=== PATIENT | female | born 1935 | race Caucasian/White ===

== ENCOUNTER 2024-05-28 12:25 | Inpatient (IN) | payer MEDICARE, OTHER, SELFPAY ==
[2024-05-27] VITALS (18 sets, daily range): BP systolic 121–170; BP diastolic 68–90; BMI 24.8
[2024-05-27] MEDS: NSS 191 ML IV (14:21)
[2024-05-27] MEDS: LOW STRENGTH ASPIRIN 324 MG PO (14:24)
[2024-05-27 16:03] LABS: ACT-LR - POC 240 Seconds (116-155)
--- NOTE | 2024-05-27 16:27 | ITS.CL.CATH ---
Addendum entered and electronically signed by Thai Renteria MD 05/27/24 16:47:
Contrast total: 136ccs
Original Note:
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
Cardiac Catheterization
Procedure Report:
CARDIAC CATHETERIZATION REPORT
Date of Procedure: 05/27/2024
Referring: [self]
Indication: [Aortic stenosis ]
PROCEDURE:
1. Right heart catheterization.
2. Left heart catheterization.
3. Coronary angiography.
[4. Aortic valve interrogation...]
ACCESS:
[6] Estonian [right radial] artery.
[6 Estonian [right antecubital] vein.
CATHETERS:
1. [6] Estonian [balloon wedge/[place]-Jose].
2. [5] Estonian [JL3.5].
3. [5] Estonian [JR4].
[ 4. ]5 Estonian AR 1 catheter to cross the valve.
HEMODYNAMIC DATA
AO (s/d/x mmHg): [ 153/82/113]
LV (s/x mmHg): [177/4/12 ]
PCWP (a/v/x mmHg): [11/9/8 ]
PA (s/d/x mmHg): [28/13/18 ]
RV (s/x mmHg): [39/0 ]
RA (a/v/x mmHg): [8 ]
PA SvO2 (%): [68 ]
PA SaO2 (%): [ 92]
Hbg (g/dL): [ ]
CO (L/min): [3.9L/min]
AV gradient (x, mmHg): [peak to peak 18.3mmhg, mean gradient 26.77mmHg ]
AV area (cm2): [ 0.87cm2]
LEFT VENTRICULOGRAPHY: Using a Migue catheter, the aortic valve was crossed into the left ventricle. Pressures were recorded and pullback was performed. Prior to pullback, left ventriculography was performed in the STEIN
projection. Ejection fraction 55% with normal wall motion. ]
CORONARY ANGIOGRAPHY
Using a JL 3.5 mm catheter, left main coronary was cannulated. Left system was imaged in multiple projections. Using a JR4 catheter, right coronary artery was cannulated. Right coronary artery was imaged in multiple projections.
Left main coronary artery is large with early bifurcation into LAD and left circumflex artery. Minor luminal irregularities present in left main coronary artery. LAD is a normal sized vessel, reaching the apex. Moderately tortuous. Minor
luminal irregularities throughout. 1 large diagonal is present. Minor luminal regularities present in the diagonal vessel.
Left circumflex is a normal sized vessel, with 2 obtuse marginal vessels. Minor luminal regularities are present.
Right coronary artery is a large vessel and that is ectatic. 20/3% proximal right coronary stenosis. 23% mid right coronary artery stenosis. Normal brisk resting flow present.
Closure Device: [TR band applied to the right radial artery site. Manual pressure was applied to the right brachial vein site.]
Radiation dose (mGy): [559.52]
DAP (cm2.Gy): [44.6940]
Fluoroscopy time (minutes): [12.7min ]
Sedation time (minutes): [45 mins ]
CONCLUSIONS:
1. [Inconclusive aortic valve interrogation with aortic valve area of 0.85 cm� but mean gradient of 26.77 mmHg and peak gradient of 18.3 mmHg. ]
2. [Nonsignificant coronary artery disease. ]
RECOMMENDATIONS:
1. Expectant management after cardiac catheterization via [right radial] approach.
2. Limited weight bearing [on right wrist] for one week.
3. [Further evaluation of the aortic valve is recommended via IRAIDA. ]
I was present with the patient for the duration of the moderate sedation and supervised staff who monitored the patient for the entire procedure. Details of sedation are entered by the nurse administering the sedation and details of the patient's
monitoring status are entered by a sign monitor role staff member into the [facility] laboratory electronic record system. Please see the nursing flow sheets for documentation of the name of the independent trained observer, and intra-service start and
end times.
I administered moderate sedation throughout this [45] minute procedure. An independent trained observer administered medications at my direction, and monitored, along with the monitor role staff member, the patient's level of consciousness and
physiological status throughout
[2024-05-27] MEDS: PULMICORT 0.5 MG INH (19:24)
[2024-05-27] MEDS: VENTOLIN NEBULES 2.5 MG INH ×2 (19:24→23:08)
--- NOTE | 2024-05-27 20:04 | HPS.HSE ---
Family Physician
-
Family Physician: Vandana Pennington
Chief Complaint
-
Chest pain/indigestion/burping post eating after cardiac cath
History of Present Illness
89-year-old female postcardiac cath for evaluation of aortic valve and episodes of chest pressure with indigestion and burping post eating. She was also complaining of some chest pain shortness of breath rales were heard of her bases and she was
given IV Lasix 40 mg in recovery along with Maalox single dose. While in postop after being given food she started complaining of indigestion like pain with burping lasting longer than it typically does she states. Her daughter Argelia states
that she has an appointment at the end of June for EGD evaluation to rule out any strictures. Once she is cleared GI she can then have IRAIDA for evaluation of her aortic valve. Her past medical history includes COPD, hypothyroidism, chronic
back pain on chronic oral opiates as needed, ulcerative colitis with history of chronic colostomy 2 years ago [facility], breast cancer with lumpectomy and chemo 20 years ago.
Medical History
Past Medical History
Past Medical History: Reports Other
Additional Past Medical History:
COPD
hypothyroidism
chronic back pain on chronic oral opiates as needed
ulcerative colitis with history of chronic colostomy 2 years ago [facility]
breast cancer with lumpectomy and chemo 20 years ago.
Past Surgical History: Reports Other
Additional Past Surgical History:
ulcerative colitis with history of chronic colostomy 2 years ago [facility]
Cardiac cath: 05/27/2024
1. Inconclusive aortic valve interrogation with aortic valve area 0.85 cm to but mean gradient 26.77 mmHg and peak gradient 18.3 mmHg
2. Nonsignificant CAD
Social History
Tobacco: Former Smoker
Alcohol: None
Drug: None
Personal: Single
Employment: Retired
Family History
Family History: Not pertinent
Allergies / Home Medications
Allergies reflects when Allergies were last updated in [facility].
Home Medications with original date entered in [facility]
Allergy/Medication List:
Allergies
Allergy/AdvReac Type Severity Reaction Status Date / Time
shellfish derived Allergy Diarhhea Verified 05/27/24 20:00
Sulfa (Sulfonamide Allergy Unknown Verified 05/27/24 20:00
Antibiotics)
Home Medications
arformoterol 15 mcg/2 mL solution for nebulization (Brovana) 2 ml inhalation BID 05/27/24
budesonide 0.5 mg/2 mL suspension for nebulization 0.5 mg inhalation BID 05/27/24
cholecalciferol (vitamin D3) 125 mcg (5,000 unit) tablet (Vitamin D3) 125 mcg PO DAILY 05/27/24
ipratropium 0.5 mg-albuterol 3 mg (2.5 mg base)/3 mL nebulization soln 3 ml inhalation QID 05/27/24
levothyroxine 37.5 mcg capsule 37.5 mcg PO DAILY 05/27/24
loperamide 2 mg tablet 2 mg PO BID 05/27/24
multivitamin 1 tab PO DAILY 05/27/24
oxycodone-acetaminophen 2.5 mg-325 mg tablet 1 tab PO Q8H PRN Back pain 05/27/24
Review of Systems
-
History Source: Patient and Family (Daughter Argelia at bedside)
A 12 point ROS was completed and negative except as noted: Yes
Constitutional: Reports Other (anxious); Denies Fatigue or Chills
EENT: Denies Sore Throat or Runny Nose
Respiratory: Denies Cough or Trouble Breathing
Cardiac: Reports Chest Pain (Describes as indigestion had burping earlier); Denies Diaphoresis, Palpitations or Syncope
Abdomen/GI: Reports Other (Chronic colostomy); Denies Abdominal Pain, Nausea, Vomiting, Diarrhea, Constipated or Bloody Stools
: Denies Dysuria, Frequency, Flank Pain, Incontinence or Difficulty Voiding
Musculoskeletal: Denies Joint Pain or Edema
Skin: Denies Itching or Rash
Neurological: Denies Dizzy or Headache
Endocrine: Reports No Symptoms
Hematologic/Lymphatic: Reports No Symptoms
Psych: Reports Anxiety
Physical Exam
Vital Signs
Vital Signs
Temp Pulse Resp BP Pulse Ox
98.3 F 81 27 137/74 92
05/27/24 14:15 05/27/24 19:20 05/27/24 19:20 05/27/24 18:20 05/27/24 19:20
Physical Exam
General: Conversant and Pain; No Fever or Chills
HEENT: NormoCephalic, Anicteric, Moist mucous membranes, PERRLA, [place] Conjunctivae and No Ptosis
Respiratory: Clear; No Wheezes, Rales or Rhonchi
Cardiac: S1/S2, Regular Rhythm and Murmur (Systolic 1/6 left upper sternal border); No Rub, Gallop or Peripheral Edema
Breast: Deferred by me
GI: Soft, Non Tender, Non Distended, Normal Bowel Sounds and No Hepatosplenomegaly
Rectal: Deferred by Provider
Genito-urinary: Deferred by me
Musculoskeletal: No Clubbing, No Cyanosis and No Edema
Skin: Warm and Dry; No Rash or Jaundice
Neuro: AO x 3, No Motor Deficits, Nonfocal/grossly intact, Cranial Nerves Intact and No Sensory Deficits; No Slurred Speech or Facial Droop
Psych: Anxious
Impression/Plan
-
Impression/plan:
OBS IVU
#Chest pain with shortness of breath postcardiac cath concern for CHF vs Esophageal Stricture
-Limited weightbearing 1 week right wrist
92% RA
-Patient took aspirin 324 mg earlier today
-Check BNP, CBC, BMP, coag,
check Troponin now and am
-Check chest x-ray
Tsh with free t4
-IV Lasix 40 mg now
-Patient has eventual plan for IRAIDA evaluation of her valve after cleared by GI for EGD and dysphagia
EKG: NSR 88 bpm, QTc 450 MS
Cardiac cath:
1. Inconclusive aortic valve interrogation with aortic valve area 0.85 cm to but mean gradient 26.77 mmHg and peak gradient 18.3 mmHg
2. Nonsignificant CAD
#Hx dysphagia unclear etiology concern for esophageal stricture/dysmotility/spasm
Given Maalox postop
-Consult GI
-Clears for now n.p.o. after midnight
-Has upcoming EGD scheduled end of June due to swallowing difficulty
-IV Protonix now and daily
-Speech swallow eval
#Hypothyroidism
Tsh with free t4
-Continue levothyroxine 37.5 mcg daily
#Chronic back pain
Patient takes oxycodone/acetaminophen 1 tab every 8 hours as needed
#COPD�no acute exacerbation
-Budesonide twice daily, Brovana twice daily, albuterol
#Ulcerative colitis with chronic colostomy x 2 years at [facility]
Loperamide 2 mg p.o. twice daily
#History of breast cancer with lumpectomy and chemo 20 years ago
DVT prophylaxis
Sq heparin
Full code
[2024-05-27] MEDS: LASIX 40 MG IV (20:08)
[2024-05-27] MEDS: MAALOX 30 ML PO (20:08)
[2024-05-27 20:11] LABS: Hematocrit 39.2 % (37.0-47.0); Hemoglobin 13.1 g/dL (12.0-16.0); Mean Corp Hgb Conc. 33.4 g/dL (33.0-37.0); Mean Corpuscular Hgb 29.6 pg (27.0-31.0); Mean Corpuscular Volume 88.5 fL (81.0-99.0); Mean Platelet Volume 8.8 fL (7.4-10.4); Platelet Count 274 10^3/uL (130-400); Red Blood Cell Count 4.43 10^6/uL (4.20-5.40); Red Cell Dist. Width 13.2 % (11.5-14.5); White Blood Cell Count 11.3 10^3/uL (4.8-10.8)
[2024-05-27 20:21] LABS: APTT 41.4 Sec (23.4-35.0); INR 1.12; PT 14.4 Sec (11.4-14.6)
--- NOTE | 2024-05-27 20:22 | PTCARENOTE ---
AT 1830 Patient became tachypneic and short of breath. Patient states this usually happens after meals but episode is lasting longer than normal. Dr. Renteria made aware. Orders given for breathing treatments. Coarse rales throughout. Respiratpry
at bedside. Patient started having 6/10 bilat rib pain and indigestion. Rapid response called. Patient admitted to IVU.
[2024-05-27 20:35] LABS: NT-proBNP 174 pg/ml; Troponin I 0.216 ng/ml
--- NOTE | 2024-05-27 20:36 | W.PN.UPDATE ---
Update Note
Progress Note Update
This note serves as an addendum to the H&P by physical education instructor GELA Antonina FIGUEROA
HPI
89F HX COPD, Hypothyroid underwent cardiac cath for RH, LH and aortic valve interrogation this evening and planned to DC however she developed indigestion at b/l costal margin while eating and SoB. Pox is low 90s with scatterd coarse rales at
bases.
Nonsignificant coronary artery disease and Inconclusive aortic valve interrogation with aortic valve area of 0.85 cm� but mean gradient of 26.77 mmHg and peak gradient of 18.3 mmHgper RH/LH cath.
ROS:
HX Indigestion , cough with food pending OP EGD
Per house PROFESSOR OF LANGUAGES , case d/w [facility] card/ Dr boudreaux suggest admit to hospitalist
PHX: as above
Reviewed VS:
Vital Signs
Temp Pulse Resp BP Pulse Ox
98.3 F 81 27 137/74 92
05/27/24 14:15 05/27/24 19:20 05/27/24 19:20 05/27/24 18:20 05/27/24 19:20
PE
Gen: Anxious
HEENT: wearing
Neck: supple
Lungs: basilar rhonchi or exp wheeze
Cor: RRR soft SM at LUSB
Abdomen: soft , benign, Colostomy bag filled with liquid dark brownish green fecal fluid
MANAGER INFRASTRUCTURE: AAO3, NFND
MS: no edema
Psych: appropriates
Data
Pending CBC, BMP and proBNP
Pending CXR
EKG:
NORMAL SINUS RHYTHM
NONSPECIFIC ST ABNORMALITY
ABNORMAL ECG
NO PREVIOUS ECGS AVAILABLE
05/27/24 cardiac cath report
PROCEDURE:
1. Right heart catheterization.
2. Left heart catheterization.
3. Coronary angiography.
4. Aortic valve interrogation.
1.Inconclusive aortic valve interrogation with aortic valve area of 0.85 cm� but mean gradient of 26.77 mmHg and peak gradient of 18.3 mmHg.
2. Nonsignificant coronary artery disease.
RECOMMENDATIONS:
1. Expectant management after cardiac catheterization via [right radial] approach.
2. Limited weight bearing [on right wrist] for one week.
3. Further evaluation of the aortic valve is recommended via IRAIDA.
Last hospitalist admission:
ASSESSMENT & PLAN
Indigestion like pain at b/l costal margin while eatimg meals s/p cardiac cath
DDX: acute on chronic dyspepsia , Coronary spasm
Nonsignificant coronary artery disease s/p cardiac cath
- Unremarkable EKG
- check TPN now and in AM in case
- DCA card consult
SoB
Marginal hypoxic RI POx 92 %
Minimal exp wheeze ? rales at base
HX COPD
- s/p IV Lasix 40 once
- check proBNP
- Pending CXR
- cont SUPERINTENDENT RENTING MANAGING Nebs
- Incentive spirometry
HX Indigestion and cough with food
OP suggestion for EGD to evaluate for stricture
- Speech to evaluate
- Clear diet in csse EGD on Friday
- GI consult
Inconclusive aortic valve interrogation
Aortic valve area of 0.85 cm� but mean gradient of 26.77 mmHg and peak gradient of 18.3 mmHg.
- To get EGD to eval stricture prior to IRAIDA
HX Colostomy 2 yrs ago at [facility]
s/p Colon segmental resection for colitis was told UC flare
- Lomotil PRN
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
Hypothyroid on LT4
DVT Px: SQH
Full code
IVU
[2024-05-27 20:55] LABS: TSH Reflex To Free T4 3.92 uIU/ml (0.47-4.68)
[2024-05-27] MEDS: VENTOLIN NEBULES INH (20:55)
[2024-05-27] MEDS: PROTONIX IV 40 MG IV (20:59)
[2024-05-27] MEDS: NSS (PRESERVATIVE FREE) 10 ML IV (20:59)
--- NOTE | 2024-05-27 21:45 | PTCARENOTE ---
Received pt from lab support tech. Hospitalists at bedside. Pt w/ R brachial c/d/i; no hematoma noted. R radial site w/ minimal old ooze outlined w/ marker. No new drg noted. Pt appears anxious. Reports 'pressure in bladder'... 'cant catch breath.' Upon
arrival to room w/ bladder scan pt able to void 400mL and reports relief w/ breathing and pressure. BMP and troponin drawn and sent. Troponin 0.216. Chase Ocampo ZUMBA INSTRUCTOR notified per protocol and no new orders placed. Currently has no CP. BP 134/75. Pt sating
at 95% 2L O2 NC. RR 22. Tele - SR. HR 90s. Oriented pt to unit. Daughter at bedside assisting in admission questions. Call gorge w/in reach.
[2024-05-27 21:50] LABS: Blood Urea Nitrogen 16 mg/dl (7-17); Calcium 9.8 mg/dl (8.4-10.2); Carbon Dioxide 28 mmol/L (22-30); Chloride 99 mmol/L (98-107); Estimated Creatinine Clearance 47 ml/min; Glucose 120 mg/dl (70-99); Potassium 3.6 mmol/L (3.5-5.1); Sodium 135 mmol/L (135-145); eGFR > 60.00
[2024-05-27] MEDS: ROXICODONE 2.5 MG PO (21:55)
[2024-05-27] MEDS: TYLENOL 325 MG PO (21:56)
[2024-05-27 22:00] LABS: Troponin I 0.211 ng/ml
[2024-05-27] MEDS: PERCOCET 5/325 1 TABLET PO (23:47)
--- NOTE | 2024-05-28 00:15 | PTCARENOTE ---
Pt c/o back pain 07/22. Oxycodone 2.5mg and Tylenol 325mg administered as ordered. Upon 1 hour reassessment, pt still w/ 07/22 back pain. Pt reports normally taking pain medication q5hr at home but only taking one dose at 5am this morning d/t
procedure. Pt unsure of at home pain med dosage. Chase Ocampo DRIER TAKE OFF TENDER notified and orders placed. Percocet ordered and administered per Margie DRIER TAKE OFF TENDER. Call gorge w/in reach.
[2024-05-28 05:10] VITALS: BP 113/69
[2024-05-28] MEDS: SYNTHROID 37.5 MCG PO (05:22)
--- NOTE | 2024-05-28 05:48 | PTCARENOTE ---
Pt reports sleeping well throughout night. Reports relief from back pain. Upon waking up pt w/ sob/wheeze. Respiratory at bedside for breathing treatment. Call pennington w/in reach.
[2024-05-28] MEDS: PULMICORT 0.5 MG INH ×2 (05:50→19:20)
[2024-05-28] MEDS: VENTOLIN NEBULES 2.5 MG INH ×2 (05:50→10:50)
[2024-05-28 06:19] LABS: Troponin I 0.136 ng/ml
[2024-05-28 07:01] VITALS: BP 114/65
[2024-05-28] MEDS: ROXICODONE 2.5 MG PO ×2 (08:56→20:43)
[2024-05-28] MEDS: TYLENOL 650 MG PO (08:57)
[2024-05-28] MEDS: HEPARIN 5000 UNITS SC ×2 (08:59→20:28)
[2024-05-28] MEDS: IMODIUM 2 MG PO ×2 (08:59→20:29)
[2024-05-28] MEDS: PROTONIX IV 40 MG IV (09:00)
[2024-05-28] MEDS: NSS (PRESERVATIVE FREE) 10 ML IV (09:00)
--- NOTE | 2024-05-28 09:05 | CON.CAR ---
Addendum entered and electronically signed by Lukas Gregory MD 05/28/24 12:01:
I saw and examined the patient.
The SIZER HAND's note was reviewed and I agree with the note.
Comment: 89-year-old female with prior breast cancer status post lobectomy, COPD, former smoker, hypothyroidism, and aortic stenosis who presented for cardiac catheterization yesterday. She developed significant shortness of breath after the
procedure. In talking with her her shortness of breath is consistent with prior COPD exacerbations. She tells me her weight is typically 140 pounds which is what we got today. Additionally, echocardiogram shows moderate to severe aortic stenosis
with normal LV function. Chest x-ray did not show any significant pulmonary edema. Finally, on exam she has poor air movement bilaterally. I believe her shortness of breath is likely due to lung disease, COPD exacerbation and would likely benefit
from increased interval of inhalers.
-No new medications or testing.
-COPD exacerbation per primary
We will sign off please call with questions or concerns.
Original Note:
Consultation
Consultation Request
Date/Time Consultation Requested: 05/27/2024 20:40
Date/Time Consultation Performed: 05/28/2024 09:00
Requesting Provider: ASH Ocampo
Performing Provider: ASH Henning for Dr. Gregory
Reason for Consultation: Chest pain & SOB S/P cardiac catheterization
Medical History
-
Chief Complaint: Chest pain postcardiac catheterization
History of Present Illness:
Juliana Harley is an 89-year-old female with prior breast cancer status post lobectomy, COPD, former smoker, hypothyroidism, and aortic stenosis who presented for cardiac catheterization yesterday. She had an inconclusive aortic valve interrogation
with an TAYLER of 0.85 cm� but a mean gradient of 26.77 mmHg and a peak gradient of 18.3 mmHg. This was via a right radial approach. Further evaluation of the aortic valve was recommended via IRAIDA. Postprocedure, she developed chest pressure with
indigestion after eating and shortness of breath. Notes reflect she had bibasilar rales and was given furosemide 40 mg in recovery along with a single dose of Maalox. She has an appointment with GI next month to rule out strictures. Once she is
cleared from a GI perspective she may undergo IRAIDA for evaluation of her aortic stenosis.
Past Medical History
Past Medical History: Cancer (Breast [lumpectomy]), COPD, Hypothyroidism, Valvular Disease (Aortic stenosis) and Other (Chronic back pain, ulcerative colitis)
Past Surgical History: Bowel Resection
Social History
Tobacco: Former Smoker
Alcohol: None
Drug: None
Employment: Retired
Family History
Family History: Reviewed & Not Pertinent
Allergies / Home Medications
Allergy/AdvReac Type Severity Reaction Status Date / Time
shellfish derived Allergy Diarhhea Verified 05/27/24 20:00
Sulfa (Sulfonamide Allergy Unknown Verified 05/27/24 20:00
Antibiotics)
�Medication �Instructions �Recorded �Confirmed �Type
arformoterol 15 mcg/2 mL solution 2 ml inhalation BID 05/27/24 05/27/24 History
for nebulization (Brovana)
budesonide 0.5 mg/2 mL suspension 0.5 mg inhalation BID 05/27/24 05/27/24 History
for nebulization
cholecalciferol (vitamin D3) 125 125 mcg PO DAILY 05/27/24 05/27/24 History
mcg (5,000 unit) tablet (Vitamin
D3)
ipratropium 0.5 mg-albuterol 3 mg 3 ml inhalation QID 05/27/24 05/27/24 History
(2.5 mg base)/3 mL nebulization
soln
levothyroxine 37.5 mcg capsule 37.5 mcg PO DAILY 05/27/24 05/27/24 History
loperamide 2 mg tablet 2 mg PO BID 05/27/24 05/27/24 History
multivitamin 1 tab PO DAILY 05/27/24 05/27/24 History
oxycodone-acetaminophen 2.5 mg-325 1 tab PO Q8H PRN Back pain 05/27/24 05/27/24 History
mg tablet
Review of Systems
-
History Source: Patient
All other systems: Negative unless noted
Constitutional: Fatigue
EENT: No Symptoms
Respiratory: Trouble Breathing
Cardiac: No Symptoms
Abdomen/GI: No Symptoms
: No Symptoms
Musculoskeletal: No Symptoms
Skin: No Symptoms
Neurological: Weakness
Endocrine: No Symptoms
Hematologic/Lymphatic: No Symptoms
Physical Exam
Vital Signs
Temp Pulse Resp BP Pulse Ox
97.4 F 84 22 113/69 95
05/28/24 06:59 05/28/24 05:50 05/28/24 06:59 05/28/24 05:10 05/28/24 06:59
Lab Results
05/27/24 20:01
05/27/24 21:24
Troponin I 0.136 ng/ml H* D 05/28/24 05:22
[id number]-[id number] Pept 174 pg/ml 05/27/24 20:01
Physical Exam
General: Well Developed, Well Nourished and Respiratory Distress
HEENT: Normocephalic, Anicteric and Moist Mucous Membranes
Respiratory: Crackles and Accessory Resp Muscle Use
Cardiac: S1/S2 and Regular Rhythm; Negative Peripheral Edema
Breast: Deferred by me
GI: Soft, Non Tender, Non Distended and Normal Bowel Sounds
Rectal: Deferred by Provider
Genito-urinary: No Costovertebral Tender
Musculoskeletal: No Clubbing, No Cyanosis and No Edema
Skin: Warm
Neuro: AO x 3
Hematologic/Lymphatic: No Lymphadenopathy
Psych: Calm (warm and dry)
Impression / Plan
-
Shortness of breath
-Rales on exam, she does have underlying lung disease
-Echo this morning
Chest pain post procedure, improved with Maalox
Non-MT troponin elevation, secondary to cardiac catheterization
-Peak troponin 0.216 and has trended down
-EKG stable, update
Cardiac catheterization
-Right radial site stable without hematoma
Aortic stenosis
-The plan is for outpatient IRAIDA when she is cleared by GI, she has an appointment next month
COPD
Hypothyroidism, on levothyroxine
Chronic back pain
Ulcerative colitis
Former smoker, continue cessation recommended
Data Reviewed
-
EKG: Report Reviewed by me (Sinus rhythm, nonspecific T wave abnormality, rate 88)
Radiology: Report Reviewed by me (CXR: No evidence of active cardiopulmonary disease.)
Labs: Labs Reviewed by me
Old Records: Reviewed
--- NOTE | 2024-05-28 10:39 | CM ---
Reviewed chart. Met with Mrs. Harley to review discharge plans. She states prior to admission she resides alone in a second floor apartment next door to her daughter. She states she has a stair glide to get to the apartment. She states once up
the steps she has a one level living. She states prior to admission she ambulates with a walker. She states she has a walker, single point cane and stair glide at home. She states she has a private caregiver three days a week for a couple of
hours. They assist with personal care. She states she pays privately for her lead caregiver. She states she has a prescription plan. Will need to see her current functional level to see if she will have any skilled care needs. Medical [id number] in
progress. The discharge plan is to return home with her private caregivers when medically stable.
[2024-05-28 11:37] VITALS: BP 117/75
[2024-05-28 12:15] VITALS: BMI 24.1
[2024-05-28] MEDS: DECADRON 4 MG IV ×2 (12:58→17:46)
--- NOTE | 2024-05-28 13:27 | CON.GI ---
Addendum entered and electronically signed by Iron Clifton MD 05/28/24 16:00:
I saw and examined the patient.
The SENIOR SUPPORT ENGINEER's note was reviewed and I agree with the note.
-- Dysphagia-intermittent for 1 year
-- Shortness of breath
-- History of UC s/p total colectomy with ileostomy at [place] 5 years back
plan
Diet as per speech therapy with aspiration precaution
Will start GI evaluation with barium esophagram
Will hold off on EGD considering her current respiratory status.
Further workup of her shortness of breath as per medical team
Original Note:
Consultation
-
Date/Time Consultation Requested: 05/27/24 2245
Date/Time Consultation Performed: 05/28/24 1300
Requesting Provider: ASH Araya
Performing Provider: Dr. Clifton/ASH Lim
Reason for Consultation: dysphagia
Medical History
Chief Complaint / HPI
Chief Complaint: CP/SOB/indigestion
History of Present Illness:
89-year-old female with past medical history breast cancer status postlumpectomy and chemotherapy, ulcerative colitis diagnosed 5 years ago treated for 1 year with medications now status post colectomy with ileostomy, COPD, hypothyroidism, aortic
stenosis who was here for cardiac catheterization yesterday who was admitted after significant shortness of breath after the procedure. We are asked to evaluate for dysphagia. Upon speaking with patient she states that she has been having
intermittent dysphagia for approximately 1 year. She states that she has been having issues with solid foods only. This is intermittent. She states that 'after I swallow I choke and I feel it gets stuck.' She states it takes several minutes to
pass. She did have a couple episodes where she regurgitated her food back up. She has had some issues of early satiety. She has not had any weight loss. Recently she has been 'choking on my spit'. And she is also been having 1 month history of
swallowing pills. She states her shortness of breath has been getting worse more recently. She is not on oxygen at home. Currently she is tachypneic, dyspneic and cannot speak in full sentences. She is on 2 L nasal cannula. The patient denies
any fevers, chills, nausea, vomiting, melena, hematochezia, odynophagia or unintentional weight loss. She does have an ileostomy with soft brown stool within it. There have been no issues with this.
Past Medical History
Past Medical History: Cancer (Breast cancer status postlumpectomy and chemotherapy (20 years ago)), COPD and Other (Aortic stenosis, ulcerative colitis status posttreatment with medications followed by subtotal colectomy with ileostomy 5 years ago,
hypothyroidism,)
Past Surgical History: Bowel Resection (Subtotal colectomy with ileostomy) and Other (Breast lumpectomy)
Social History
Tobacco: Former Smoker
Alcohol: None
Drug: None
Family History
Family History: Other (No family history of gastrointestinal malignancy or IBD)
Allergies / Home Medications
Allergy/AdvReac Type Severity Reaction Status Date / Time
shellfish derived Allergy Diarhhea Verified 05/27/24 20:00
Sulfa (Sulfonamide Allergy Unknown Verified 05/27/24 20:00
Antibiotics)
�Medication �Instructions �Recorded
arformoterol 15 mcg/2 mL solution 2 ml inhalation BID 05/27/24
for nebulization (Brovana)
budesonide 0.5 mg/2 mL suspension 0.5 mg inhalation BID 05/27/24
for nebulization
cholecalciferol (vitamin D3) 125 125 mcg PO DAILY 05/27/24
mcg (5,000 unit) tablet (Vitamin
D3)
ipratropium 0.5 mg-albuterol 3 mg 3 ml inhalation QID 05/27/24
(2.5 mg base)/3 mL nebulization
soln
levothyroxine 37.5 mcg capsule 37.5 mcg PO DAILY 05/27/24
loperamide 2 mg tablet 2 mg PO BID 05/27/24
multivitamin 1 tab PO DAILY 05/27/24
oxycodone-acetaminophen 2.5 mg-325 1 tab PO Q8H PRN Back pain 05/27/24
mg tablet
Review of Systems
-
All other systems: A 12 pt ROS was Negative except as stated above in HPI
Vital Signs
Temp Pulse Resp BP Pulse Ox
97.4 F 92 24 117/75 96
05/28/24 06:59 05/28/24 12:00 05/28/24 11:35 05/28/24 11:37 05/28/24 11:35
Physical Exam
Exam
General: Other (Patient with dyspnea, tachypnea appears frail)
HEENT: Anicteric
Respiratory: Clear (Poor air exchange) and Other (Supplemental nasal cannula 2 L, tachypnea, dyspnea, cannot speak in full sentences)
Cardiac: Regular Rhythm
GI: Soft, Non Tender, Non Distended, Normal Bowel Sounds and Other (Ileostomy right sided, brown stool in bag)
Musculoskeletal: No Edema
Skin: Warm and Dry
Neuro: AO x 3
Psych: Calm
Results
WBC 11.3 10^3/uL (4.8-10.8) H 05/27/24 20:01
Hgb 13.1 g/dL (12.0-16.0) 05/27/24 20:01
Hct 39.2 % (37.0-47.0) 05/27/24 20:01
MCV 88.5 fL (81.0-99.0) 05/27/24 20:01
Plt Count 274 10^3/uL (130-400) 05/27/24 20:01
PT 14.4 Sec (11.4-14.6) 05/27/24 20:01
INR 1.12 05/27/24 20:01
APTT 41.4 Sec (23.4-35.0) H 05/27/24 20:01
Sodium 135 mmol/L (135-145) 05/27/24 21:24
Potassium 3.6 mmol/L (3.5-5.1) 05/27/24 21:24
Chloride 99 mmol/L (98-107) 05/27/24 21:24
Carbon Dioxide 28 mmol/L (22-30) 05/27/24 21:24
BUN 16 mg/dl (7-17) 05/27/24 21:24
Creatinine 0.7 mg/dL (0.6-1.0) 05/27/24 21:24
Calcium 9.8 mg/dl (8.4-10.2) 05/27/24 21:24
Diagnostic Image Results:
Prior GI Procedures:
EGD: Never
Colonoscopy: Per patient approximately 5 years ago. Was performed by physician associated with [facility]. Colectomy performed at [facility]
Assessment / Plan
-
89-year-old female with past medical history breast cancer status postlumpectomy and chemotherapy, ulcerative colitis diagnosed 5 years ago treated for 1 year with medications now status post colectomy with ileostomy, COPD, hypothyroidism, aortic
stenosis who was here for cardiac catheterization yesterday who was admitted after significant shortness of breath after the procedure. We are asked to evaluate for dysphagia. Upon speaking with patient she states that she has been having
intermittent dysphagia for approximately 1 year. She states that she has been having issues with solid foods only. Currently patient is having acute on chronic respiratory issues with dyspnea, tachypnea and unable to speak in full sentences. She
is requiring supplemental oxygen. EGD would not be appropriate.
Impression:
Intermittent dysphagia, 1 year
Acute on chronic shortness of breath
History of ulcerative colitis status post colectomy end ileostomy
Other diagnoses:
COPD
Aortic stenosis
Hypothyroidism
Plan:
-Speech-language pathology evaluation
-Recommend barium esophagram
-EGD not appropriate at this time
-Further recommendations to be forthcoming
-
-
Thank you for consultation and allowing me to participate in the patient's care. Please call the precast concrete products installer GI physician during the after hours with any questions or concerns.
--- NOTE | 2024-05-28 14:31 | W.PN.HOSP.TC ---
Today's Communication/Plan
-
Treat COPD exacerbation including oxygen, systemic corticosteroids, bronchodilators
Attempt to wean off O2 as tolerates.
GI evaluation for odynophagia.
Monitor volume status closely
Assessment / Plan
Assessment / Plan
Impression:
Acute hypoxic respiratory failure secondary to COPD exacerbation.
COPD, acute exacerbation
Persistent odynophagia to solids for about a year
Aortic stenosis.
� Status post RHC 05/27 with inconclusive aortic valve interrogation.
Non-NM troponin elevation.
Other conditions:
Hypothyroidism on replacement.
Ulcerative colitis.
Breast carcinoma status post lumpectomy
Chronic back pain.
Former smoker
Plan:
Acute hypoxic respiratory failure secondary to COPD exacerbation
Currently required 2 L of nasal cannula oxygen while satting in low 90s with increased work of breathing
Exam with poor air movement, diminished breath sounds bilaterally without wheezing
Clinically not volume overloaded
Chest x-ray with hyperinflation no infiltrates
Continue O2 supplementation with attempt to wean to
Initiate corticosteroids: Decadron 4 mg every 6
Continue Pulmicort
Continue short acting bronchodilators.
Consider pulmonology evaluation if no reasonable improvement over the next 24 to 48 hours.
Aortic stenosis
Echocardiogram 05/28 LVEF 50 to 60%. Moderate to severe aortic stenosis with TAYLER 0.93 cm�.
Ongoing evaluation including RHC on 05/27 and plan IRAIDA as outpatient.
Volume status compensated
Status post Lasix 40 mg IV given on 05/27
Monitor closely hold further diuresis unless required.
Persistent odynophagia to solids.
Speech and swallow evaluation.
VSE today on 05/28 with unremarkable oropharyngeal phase and passage to esophagus
Diet has been adjusted as recommended.
Gastroenterology evaluation
Esophagogram once clear contrast from VSE
Continue PPI
Eventually will need GI clearance for planned IRAIDA
Ulcerative colitis
Status post segmental resection for ulcerative colitis flare, colostomy 2 years ago at [facility]
Continue Lamictal as needed
Anticipated Discharge: 24 - 48 hours
Subjective/Interval History
-
Date of Service: May 28, 2024
Objective Data
-
Vital Signs:
Vital Signs
Temp Pulse Resp BP Pulse Ox
97.4 F 92 24 117/75 96
05/28/24 06:59 05/28/24 12:00 05/28/24 11:35 05/28/24 11:37 05/28/24 11:35
I&O
05/27/24 05/28/24 05/29/24
06:59 06:59 06:59
Output Total 1600 / 1600 250 / 250
Balance -1600 / -1600 -250 / -250
Physical Exam
-
General: Well Developed and No Apparent Distress
HEENT: Normocephalic, Atraumatic and Moist Mucous Membranes
Respiratory: Accessory Resp Muscle Use and Other (Increased work of breathing with poor air movement bilaterally); Negative Wheezes
Cardiac: Regular Rhythm and S1/S2; Negative Murmur, Rub or Gallop
GI: Soft, Nontender, Nondistended and Normal Bowel Sounds; Negative Organomegaly
Rectal: Deferred by Provider
Musculoskeletal: No Clubbing, No Cyanosis and No Edema
Skin: Negative Rash
Neuro: Nonfocal/Grossly Intact
--- NOTE | 2024-05-28 14:44 | PTOTSP ---
Video Swallow Examination
Instances of disorganized oral processing and swallow delay that may have been related to taste of barium and the patient's overall presentation of discomfort and unease. This combination resulted in transient laryngeal penetration of thin liquid by
cup, 1/2 trials of honey thick liquid/tsp and regular solid. No persistent laryngeal penetration or aspiration observed during study. Trace to mild oral stasis cleared with secondary swallow. No pharyngeal stasis. Observation of esophageal emptying
in lateral upright position was unremarkable, though visualization not ideal and this test is not meant to assess structure or function of esophagus.
Recommend
1. Soft solids and Thin Liquids
2. Eat slowly and chew thoroughly
Given patient report of pharyngeal/sternal retention:
3. Intersperse sip of liquid in between bites of solids/semi-solids
4. Remain upright for at least 30 minutes after meals
--- NOTE | 2024-05-28 15:14 | PTCARENOTE ---
Pt sat OOB in chair today,martha well, ESTRADA, and dyspneic when talking, she remains on O2 at 2L/min. O2 sat 93%.
[2024-05-28 15:19] VITALS: BP 121/71
[2024-05-28] MEDS: DUONEB 3 ML INH ×2 (15:42→19:20)
[2024-05-28 16:45] LABS: Glucose - Point of Care 196 mg/dl (70-99)
[2024-05-28] MEDS: NOVOLOG FLEXPEN-LOW RESISTANCE 1 UNITS SC (17:45)
[2024-05-28 18:32] VITALS: BP 117/65
[2024-05-28] MEDS: MAALOX 30 ML PO (20:30)
[2024-05-28] MEDS: FLUSH (NSS) 1 FLUSH IV (20:30)
[2024-05-28] MEDS: TYLENOL 325 MG PO (20:42)
[2024-05-28 21:40] LABS: Glucose - Point of Care 147 mg/dl (70-99)
[2024-05-28 22:00] VITALS: BP 120/75
--- NOTE | 2024-05-28 22:51 | PTCARENOTE ---
Received patient at change of shift. Awake and oriented. Sitting on edge of bed. BP-117/65 SR 95, oxygen 93% on 2L. Right brachial clean, dry, and intact. Right radial no change from old seeping. Positive radial pulses. Very SOB on exertion and with
talking. Denies any pain. Emptied colostomy bag. Patient requested Maloxx for indigestion, given-- see MAR. Patient agreed to call care team with any shortness of breath. Call pennington within reach.
[2024-05-29] VITALS (8 sets, daily range): BP systolic 99–117; BP diastolic 50–69
[2024-05-29] MEDS: DECADRON 4 MG IV ×4 (00:41→21:06)
[2024-05-29] MEDS: FLUSH (NSS) 1 FLUSH IV (00:41)
[2024-05-29 04:44] LABS: % Basophils 0.2 % (0-2); % Immature Granulocytes 0.7 % (0-0.5); % Lymphocytes 15.5 % (20.5-51.1); % Monocytes 1.5 % (1.7-9.3); % Neutrophils 82.1 % (42.2-75.2); Absolute Monocytes 0.1 10^3/uL (0.1-0.6); Hemoglobin 12.9 g/dL (12.0-16.0); Mean Corp Hgb Conc. 33.9 g/dL (33.0-37.0); Mean Corpuscular Hgb 29.7 pg (27.0-31.0); Mean Corpuscular Volume 87.4 fL (81.0-99.0); Mean Platelet Volume 8.6 fL (7.4-10.4); Nucleated Red Blood Cells % 0 %; Platelet Count 276 10^3/uL (130-400); Red Blood Cell Count 4.35 10^6/uL (4.20-5.40); Red Cell Dist. Width 12.9 % (11.5-14.5); White Blood Cell Count 6.1 10^3/uL (4.8-10.8)
[2024-05-29] MEDS: DUONEB 3 ML INH ×5 (04:54→19:41)
[2024-05-29] MEDS: SYNTHROID 37.5 MCG PO (05:06)
[2024-05-29 05:43] LABS: Blood Urea Nitrogen 22 mg/dl (7-17); Calcium 9.8 mg/dl (8.4-10.2); Carbon Dioxide 26 mmol/L (22-30); Chloride 99 mmol/L (98-107); Estimated Creatinine Clearance 41 ml/min; Glucose 143 mg/dl (70-99); Potassium 4.5 mmol/L (3.5-5.1); Sodium 134 mmol/L (135-145); eGFR > 60.00
[2024-05-29] MEDS: HEPARIN 5000 UNITS SC ×2 (07:26→20:10)
[2024-05-29] MEDS: PROTONIX IV 40 MG IV ×2 (07:27→20:11)
[2024-05-29] MEDS: NSS (PRESERVATIVE FREE) 10 ML IV ×2 (07:27→20:10)
[2024-05-29] MEDS: TYLENOL 650 MG PO ×3 (07:28→21:05)
[2024-05-29] MEDS: IMODIUM 2 MG PO ×2 (07:28→20:10)
[2024-05-29] MEDS: PULMICORT 0.5 MG INH ×2 (07:40→19:40)
[2024-05-29 08:07] LABS: Glucose - Point of Care 140 mg/dl (70-99)
[2024-05-29] MEDS: NOVOLOG FLEXPEN-LOW RESISTANCE SC ×2 (08:08→16:53)
--- NOTE | 2024-05-29 09:12 | PTCARENOTE ---
Pt c/o pain/pressure across her chest, rating 2-3/10, reports this is new pain for her. EKG done, Pt then said pain worse when she takes a deep breath. She has just finished eating some of her breakfast. Pt assisted OOB in chair, after changing
position, pt now says her pain is gone. Dr Montiel aware.
[2024-05-29 09:15] LABS: Glycohemoglobin (HgbA1c) 5.7 % (4.0-5.6)
[2024-05-29] MEDS: MAALOX 30 ML PO (09:57)
--- NOTE | 2024-05-29 11:08 | W.PN.HOSP.TC ---
Today's Communication/Plan
-
Taper steroids
Wean oxygen as tolerated
Try Maalox
Esophagram Friday
May need EGD also
Assessment / Plan
Assessment / Plan
89-year-old female admitted with chest pressure.
CVS: S1-S2 normal
Chest: CTA B/L
Abdomen: Soft, NT / Bowel sounds present
Extremities: No edema, normal pulses
BLISTER RUST ERADICATOR: Non focal exam
# Chest pressure. EKG without any acute changes
Likely secondary to esophageal problems
Try Maalox
Upright for all meals
Continue PPI change to BID
Esophagram as scheduled
# COPD exacerbation
Continue oxygen supplementation wean as tolerated
Systemic steroids-Taper
Bronchodilators
Patient was on Brovana, budesonide, ipratropium inhalers as outpatient.
# Odynophagia
Speech and swallow evaluation.
VSE on 05/28 with unremarkable oropharyngeal phase and passage to esophagus
Continue PPI
GI evaluation requested
Eventually will need GI clearance for planned IRAIDA
Esophagram planned
# Aortic stenosis
Echocardiogram 05/28 LVEF 50 to 60%. Moderate to severe aortic stenosis with TAYLER 0.93 cm�.
Right heart cath 05/27/2024 with inconclusive aortic valve interrogation
Volume status compensated
Status post Lasix 40 mg IV given on 05/27
Monitor closely hold further diuresis unless required.
# Nonischemic myocardial injury
# Hypothyroidism-continue Synthroid
# Ulcerative colitis-Status post segmental resection for ulcerative colitis flare, colostomy 2 years ago at [facility]
# History of breast cancer status postlumpectomy
# Chronic pain-opiate dependent for pain control
# Ex-smoker
# DVT prophylaxis- GYPSY
# Full code
Discussed with nursing.
Spoke to daughter and updated.
Anticipated Discharge: > 48 hours
Subjective/Interval History
-
Date of Service: May 29, 2024
Objective Data
-
Labs:
Laboratory Results
05/29/24
04:31
WBC 6.1
Hgb 12.9
Hct 38.0
Plt Count 276
Sodium 134 L
Potassium 4.5
Chloride 99
Carbon Dioxide 26
BUN 22 H
Creatinine 0.8
Glucose 143 H
Calcium 9.8
Vital Signs:
Vital Signs
Temp Pulse Resp BP Pulse Ox
98.8 F 113 20 99/64 94
05/29/24 08:02 05/29/24 08:02 05/29/24 08:02 05/29/24 08:02 05/29/24 08:02
I&O
05/28/24 05/29/24 05/30/24
06:59 06:59 06:59
Intake Total 100 / 100
Output Total 1600 / 1600 1125 / 1125 150 / 150
Balance -1600 / -1600 -1025 / -1025 -150 / -150
[2024-05-29 12:08] LABS: Glucose - Point of Care 168 mg/dl (70-99)
[2024-05-29] MEDS: NOVOLOG FLEXPEN-LOW RESISTANCE 1 UNITS SC (12:18)
--- NOTE | 2024-05-29 15:22 | PTCARENOTE ---
Pt c/o headache earlier this morning and again this afternoon med with Tylenol 650 mg po as ordered for mild pain with relief noted.
[2024-05-29 16:14] LABS: Glucose - Point of Care 148 mg/dl (70-99)
[2024-05-29] MEDS: TYLENOL 325 MG PO (17:37)
[2024-05-29] MEDS: ROXICODONE 2.5 MG PO (17:38)
--- NOTE | 2024-05-29 21:41 | PTCARENOTE ---
Received pt at handoff. AOX3. Tele- SR. HR 90-100s. Assessment completed as documented. Pt c/o headache 12/20. Tylenol 650mg administered as ordered and pt reports relief. Pt ambulatory to bathroom via RW and assist x1. Currently in bed; call pennington
w/in reach.
[2024-05-29 22:01] LABS: Glucose - Point of Care 132 mg/dl (70-99)
[2024-05-30 01:42] VITALS: BMI 24.7
[2024-05-30 01:43] VITALS: BP 125/84
[2024-05-30] MEDS: MAALOX 30 ML PO ×2 (02:18→06:18)
[2024-05-30] MEDS: TYLENOL 650 MG PO (04:55)
[2024-05-30] MEDS: SYNTHROID 37.5 MCG PO (04:56)
[2024-05-30] MEDS: DECADRON 4 MG IV (04:56)
--- NOTE | 2024-05-30 06:40 | PTCARENOTE ---
Pt reports indigestion. Maalox given as ordered and relief noted.
[2024-05-30 07:28] VITALS: BP 124/65
[2024-05-30] MEDS: HEPARIN 5000 UNITS SC ×2 (07:28→20:31)
[2024-05-30] MEDS: IMODIUM 2 MG PO ×2 (07:28→20:31)
[2024-05-30] MEDS: NSS (PRESERVATIVE FREE) 10 ML IV ×2 (07:29→20:31)
[2024-05-30] MEDS: PROTONIX IV 40 MG IV ×2 (07:29→20:31)
[2024-05-30 07:39] LABS: Glucose - Point of Care 114 mg/dl (70-99)
[2024-05-30] MEDS: NOVOLOG FLEXPEN-LOW RESISTANCE SC ×3 (07:40→17:41)
[2024-05-30] MEDS: DUONEB 3 ML INH ×4 (08:19→19:17)
[2024-05-30] MEDS: PULMICORT 0.5 MG INH ×2 (08:20→19:17)
--- NOTE | 2024-05-30 10:56 | W.PN.HOSP.TC ---
Today's Communication/Plan
-
Lfts
USS abdomen
Esophagram Friday
Assessment / Plan
Assessment / Plan
89-year-old female admitted with chest pressure.
CVS: S1-S2 normal
Chest: CTA B/L
Abdomen: Soft, mild epigastric discomfort on palpation bowel sounds present
Extremities: No edema,
TERRITORY OUTSIDE SALES MANAGER: Non focal exam
# Chest pressure. EKG without any acute changes
Likely secondary to esophageal problems
Better with Maalox
Upright for all meals
Continue PPI change to BID
She also has epigastric pain and discomfort today
Check LFTs
Ultrasound of the abdomen ordered
Esophagram as scheduled
# COPD exacerbation
Of oxygen
Systemic steroids-patient does not want to take it any longer
Watch off of that today by patient's preference
She is aware that she may get a flareup
Bronchodilators
Patient was on Brovana, budesonide, ipratropium inhalers as outpatient.
# Odynophagia
Speech and swallow evaluation.
VSE on 05/28 with unremarkable oropharyngeal phase and passage to esophagus
Continue PPI
GI evaluation requested
Eventually will need GI clearance for planned IRAIDA
Esophagram planned
# Aortic stenosis
Echocardiogram 05/28 LVEF 50 to 60%. Moderate to severe aortic stenosis with TAYLER 0.93 cm�.
Right heart cath 05/27/2024 with inconclusive aortic valve interrogation
Volume status compensated
Status post Lasix 40 mg IV given on 05/27
Monitor closely hold further diuresis unless required.
# Nonischemic myocardial injury
# Hypothyroidism-continue Synthroid
# Ulcerative colitis-Status post segmental resection for ulcerative colitis flare, colostomy 2 years ago at [facility]
# History of breast cancer status postlumpectomy
# Chronic pain-opiate dependent for pain control
# Ex-smoker
# DVT prophylaxis- GYPSY
# Full code
Discussed with nursing At bedside
Discussed with GI today
05/29/2024-spoke to daughter and updated.
Anticipated Discharge: 24 - 48 hours
Subjective/Interval History
-
Date of Service: May 30, 2024
Objective Data
-
Labs:
Laboratory Results
05/30/24
09:43
Sodium Pending
Potassium Pending
Chloride Pending
Carbon Dioxide Pending
BUN Pending
Creatinine Pending
Glucose Pending
Calcium Pending
Total Bilirubin Pending
AST Pending
ALT Pending
Alkaline Phosphatase Pending
Vital Signs:
Vital Signs
Temp Pulse Resp BP Pulse Ox
98.4 F 95 20 124/65 93
05/30/24 07:33 05/30/24 08:20 05/30/24 08:20 05/30/24 07:28 05/30/24 08:20
I&O
05/29/24 05/30/24 05/31/24
06:59 06:59 06:59
Intake Total 100 / 100
Output Total 1125 / 1125 850 / 850
Balance -1025 / -1025 -850 / -850
[2024-05-30 11:04] LABS: ALT (SGPT) 28 U/L (0-35); AST (SGOT) 47 U/L (14-36); Albumin 4.2 g/dl (3.5-5.0); Alkaline Phosphatase 76 U/L (38-126); Blood Urea Nitrogen 27 mg/dl (7-17); Calcium 9.9 mg/dl (8.4-10.2); Carbon Dioxide 24 mmol/L (22-30); Chloride 98 mmol/L (98-107); Estimated Creatinine Clearance 36 ml/min; Glucose 127 mg/dl (70-99); Potassium 4.4 mmol/L (3.5-5.1); Sodium 134 mmol/L (135-145); Total Bilirubin 0.3 mg/dl (0.2-1.3); Total Protein 6.9 g/dl (6.3-8.2); eGFR > 60.00
[2024-05-30 11:35] VITALS: BP 110/75
--- NOTE | 2024-05-30 11:47 | CHAP ---
Ms Harley was welcoming - appreciated having some company. She praised the staff - hopes 'they'll find out what's causing the breathing issues.' Emotional and spiritual support provided.
--- NOTE | 2024-05-30 12:13 | PTCARENOTE ---
Pt weaned off O2, O2 sat 93% on RA.
[2024-05-30 13:35] LABS: Glucose - Point of Care 132 mg/dl (70-99)
[2024-05-30] MEDS: DECADRON IV (15:17)
[2024-05-30] MEDS: TYLENOL PO (15:18)
[2024-05-30 15:37] VITALS: BP 89/54
[2024-05-30 17:19] LABS: Glucose - Point of Care 124 mg/dl (70-99)
[2024-05-30] MEDS: DECADRON 2 MG IV (17:53)
[2024-05-30 18:59] VITALS: BP 102/55
[2024-05-30 21:36] LABS: Glucose - Point of Care 163 mg/dl (70-99)
[2024-05-30 23:13] VITALS: BP 128/71
--- NOTE | 2024-05-30 23:40 | PTCARENOTE ---
assumed care of patient at the change of shift. AAOx3. ambulating in the room, steady on her feet. SR-ST 90s-100s. increased rate with movement. bp stable. bp stable. patient denies any pain/sob at this time. dyspnea on exertion noted. reviewed plan
of care with patient and verbalized understanding. call pennington within reach. makes needs known.
[2024-05-31 05:14] VITALS: BP 135/66
[2024-05-31 06:00] VITALS: BMI 24.5
[2024-05-31 06:02] LABS: ALT (SGPT) 32 U/L (0-35); AST (SGOT) 41 U/L (14-36); Albumin 3.6 g/dl (3.5-5.0); Alkaline Phosphatase 68 U/L (38-126); Blood Urea Nitrogen 24 mg/dl (7-17); Calcium 9.2 mg/dl (8.4-10.2); Carbon Dioxide 26 mmol/L (22-30); Chloride 103 mmol/L (98-107); Estimated Creatinine Clearance 41 ml/min; Glucose 131 mg/dl (70-99); Potassium 4.3 mmol/L (3.5-5.1); Sodium 134 mmol/L (135-145); Total Bilirubin 0.3 mg/dl (0.2-1.3); Total Protein 6.2 g/dl (6.3-8.2); eGFR > 60.00
[2024-05-31] MEDS: DECADRON 2 MG IV (06:14)
[2024-05-31] MEDS: SYNTHROID 37.5 MCG PO (06:14)
[2024-05-31] MEDS: DUONEB 3 ML INH ×3 (06:33→15:26)
[2024-05-31] MEDS: PULMICORT 0.5 MG INH (06:33)
[2024-05-31 07:27] VITALS: BP 117/54
[2024-05-31 07:34] LABS: Glucose - Point of Care 92 mg/dl (70-99)
[2024-05-31] MEDS: PROTONIX IV 40 MG IV (07:51)
[2024-05-31] MEDS: HEPARIN 5000 UNITS SC (07:51)
[2024-05-31] MEDS: NSS (PRESERVATIVE FREE) 10 ML IV (07:51)
[2024-05-31] MEDS: NOVOLOG FLEXPEN-LOW RESISTANCE SC ×2 (08:51→11:06)
--- NOTE | 2024-05-31 10:24 | PTCARENOTE ---
Assumed care at 0645. Patient fairly comfortable. Complaints of fatigue today. NSR, VSS. NPO for esophagagram today. Patient sent to department on a stretcher
[2024-05-31 11:03] LABS: Glucose - Point of Care 103 mg/dl (70-99)
[2024-05-31] MEDS: IMODIUM 2 MG PO (11:06)
[2024-05-31] MEDS: TYLENOL 650 MG PO (11:24)
[2024-05-31 11:52] VITALS: BP 106/51
--- NOTE | 2024-05-31 12:55 | CM ---
Chart reviewed. Patient is independent of ADLS, lives alone in a apartment, 2nd floor, stair glide to enter, ambulates with a RW and SPC. Patient's daughter lives next door. Patient has a private caregiver who comes into the house 3 days a week
for a few hours. PT evaluation requested. Patient is not interested in VN. Plan is for the patient to return home with private caregiver. CM to follow
[2024-05-31] MEDS: ATIVAN 0.5 MG PO (14:10)
[2024-05-31] MEDS: DELTASONE 40 MG PO (14:10)
--- NOTE | 2024-05-31 14:35 | PTCARENOTE ---
Headache improved after coffee and Tylenol. Ativan given for anxiety. Steroids changed to PO and given
[2024-05-31 16:05] VITALS: PULSE 102
[2024-05-31 17:02] VITALS: BP 101/88
--- NOTE | 2024-05-31 17:08 | W.PN.UPDATE ---
Update Note
Progress Note Update
Discussed with Hospitalist . Barium esophagram- no obstruction . Will recommend outpatient follow-up with patient's GI at [facility]-EGD as outpatient once stable from respiratory standpoint. will s/o
--- NOTE | 2024-05-31 17:12 | W.DS.TRANS ---
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
-
Discharge Instructions:
Discharge Diagnosis/Procedures Cardiac cath
Impression:
Acute hypoxic respiratory failure secondary to
COPD exacerbation.
COPD, acute exacerbation
Persistent odynophagia to solids for about a
year
Aortic stenosis.
� Status post RHC 05/27 with inconclusive aortic
valve interrogation.
Non-AR troponin elevation.
Other conditions:
Hypothyroidism on replacement.
Ulcerative colitis.
Breast carcinoma status post lumpectomy
Chronic back pain.
Former smoker
Diet Low Cholesterol
Driving Restrictions No driving for 24 hours
Instructions: Aortic stenosis
Heart Healthy Diet
Aortic Stenosis, Adult (DC)
Stand-Alone Forms: DC Instructions- Cath/EP Lab
Changes to Home Medications: Yes
Discharge Medications:
DC Medications w/original date entered in [employer]
arformoterol 15 mcg/2 mL solution for nebulization (Brovana) 2 ml inhalation BID Lung/Breathing Issues 05/27/24
budesonide 0.5 mg/2 mL suspension for nebulization 0.5 mg inhalation BID Lung/Breathing Issues 05/27/24
cholecalciferol (vitamin D3) 125 mcg (5,000 unit) tablet (Vitamin D3) 125 mcg PO DAILY Supplement 05/27/24
ipratropium 0.5 mg-albuterol 3 mg (2.5 mg base)/3 mL nebulization soln 3 ml inhalation QID Lung/Breathing Issues 05/27/24
levothyroxine 37.5 mcg capsule 37.5 mcg PO DAILY Thyroid 05/27/24
loperamide 2 mg tablet 2 mg PO BID DIARRHEA 05/27/24
multivitamin 1 tab PO DAILY Supplement 05/27/24
oxycodone-acetaminophen 2.5 mg-325 mg tablet 1 tab PO Q8H PRN Back pain 05/27/24
pantoprazole 40 mg tablet,delayed release (Protonix) 40 mg PO DAILY #30 tabs 05/31/24
prednisone 10 mg tablet 10 mg PO DIRECTED #30 tabs 05/31/24
Home Medication Changes
Steroid taper and PPI added
Pending Results: No
--- NOTE | 2024-05-31 17:33 | PTCARENOTE ---
Patient discharge teaching completed, verbalized understanding. Daughter will be picking up patient to take her to her home. All new prescriptions called into the pharmacy, IV and telemetry removed
== END 2024-05-31 18:16 | disposition home or self-care (01) | DRG 190 ==
LOC: IVU 12:25
PROVIDERS: Hospitalist; Internal Medicine Cardiovascular Disease; Registered Nurse; ADMITTING PHYSICIAN Internal Medicine; ATTENDING PHYSICIAN Internal Medicine; CONSULT PHYSICIAN Internal Medicine Cardiovascular Disease; CONSULT PHYSICIAN Internal Medicine Gastroenterology; FAMILY PHYSICIAN Internal Medicine
PROC: B2111ZZ Fluoroscopy of Multiple Coronary Arteries using Low Osmolar Contrast (ICD-10-PCS; 2024-05-27)
PROC: 4A023N8 Measurement of Cardiac Sampling and Pressure, Bilateral, Percutaneous Approach (ICD-10-PCS; 2024-05-27)
DX: J44.1 Chronic obstructive pulmonary disease with (acute) exacerbation (principal); J96.01 Acute respiratory failure with hypoxia; K51.90 Ulcerative colitis, unspecified, without complications; I5A Non-ischemic myocardial injury (non-traumatic); F11.20 Opioid dependence, uncomplicated; K30 Functional dyspepsia; E03.9 Hypothyroidism, unspecified; I25.10 Atherosclerotic heart disease of native coronary artery without angina pectoris; R13.10 Dysphagia, unspecified; M54.9 Dorsalgia, unspecified; I35.0 Nonrheumatic aortic (valve) stenosis; R68.81 Early satiety; R05.9 Cough, unspecified; G89.29 Other chronic pain; Z92.21 Personal history of antineoplastic chemotherapy; Z93.3 Colostomy status; Z85.3 Personal history of malignant neoplasm of breast; Z87.891 Personal history of nicotine dependence; Z88.2 Allergy status to sulfonamides; Z91.013 Allergy to seafood; Z79.890 Hormone replacement therapy; Z90.49 Acquired absence of other specified parts of digestive tract; Z79.51 Long term (current) use of inhaled steroids
CPT/HCPCS: 71045; 74221; 74230; 76700; 80048; 80053; 82962; 83036; 83880; 84443; 84484; 85025; 85027; 85347; 85610; 85730; 92611; 93005; 93306; 93460; 94640; 97162; C1769; C1894; Q9967

== ENCOUNTER → 2024-07-06 09:02 | Outpatient (REF) | payer MEDICARE, OTHER, SELFPAY | LOC: RAD 09:02 | PROVIDERS: ATTENDING PHYSICIAN Student in an Organized Health Care Education/Training Program; FAMILY PHYSICIAN Internal Medicine | DX: I35.0 Nonrheumatic aortic (valve) stenosis (principal); R06.02 Shortness of breath | CPT/HCPCS: 74174; 75572; Q9967 ==